=== PATIENT | female | born 2000 | race Caucasian/White ===

== ENCOUNTER 2022-05-10 09:49 | Emergency (ER) | payer OTHER ==
[~2022-05-10] VITALS: Ht 167.6 cm; Wt 56.7 kg
[2022-05-10] MEDS ORDERED: PRENA1 TRUE CO1 EACH PO (09:54)
[2022-05-10] MEDS ORDERED: PROAIR RESPICL90 MCG IH (13:14)
[2022-05-10] MEDS ORDERED: MUCINEX DM ER1 EAC1 PO (13:14)
[2022-05-10] MEDS ORDERED: CETIRIZINE HCL10 MG PO (13:14)
== END 2022-05-10 14:27 ==
LOC: ER 09:49 → EMR PED 09:49 → ER 10:17
DX: O98.512 Other viral diseases complicating pregnancy, second trimester (principal); O23.42 Unspecified infection of urinary tract in pregnancy, second trimester; U07.1 COVID-19; Z3A.18 18 weeks gestation of pregnancy; N39.0 Urinary tract infection, site not specified; J06.9 Acute upper respiratory infection, unspecified; O26.892 Other specified pregnancy related conditions, second trimester; R10.2 Pelvic and perineal pain; Z91.010 Allergy to peanuts

== ENCOUNTER 2022-05-10 14:00 | Outpatient (CLI) | payer OTHER ==
[~2022-05-10 14:00] MED LIST: CETIRIZINE HCL10 MG PO; MUCINEX DM ER1 EAC1 PO; PRENA1 TRUE CO1 EACH PO; PROAIR RESPICL90 MCG IH
== END 2022-05-10 15:13 | disposition home or self-care (01) ==
LOC: ASH CLINIC 14:00
PROVIDERS: ATTEND General Practice
DX: U07.1 COVID-19 (principal)

== ENCOUNTER 2022-05-18 12:25 | Outpatient (CLI) | payer OTHER ==
[2022-05-19] MEDS ORDERED: PEPCID20 MG PO (15:31)
== END 2022-05-19 15:28 | disposition home or self-care (01) ==
LOC: OBS/DEL 12:25
PROVIDERS: ATTEND Obstetrics & Gynecology
DX: O26.892 Other specified pregnancy related conditions, second trimester (principal); Z3A.20 20 weeks gestation of pregnancy; K29.70 Gastritis, unspecified, without bleeding; R10.2 Pelvic and perineal pain; R19.7 Diarrhea, unspecified; Z91.010 Allergy to peanuts

== ENCOUNTER 2022-08-03 01:43 | Inpatient (IN) | payer OTHER ==
[~2022-08-03] VITALS: Ht 152.4 cm; Wt 64.4 kg
[~2022-08-03 01:43] MED LIST changes: +PEPCID20 MG PO
== END 2022-08-23 15:15 | disposition home or self-care (01) | DRG 833 ==
LOC: LDR 01:43 → OB/GYN 08-04 12:47 → EDBD 08-23 15:15 → OB/GYN 08-23 15:15
PROVIDERS: ADMIT Obstetrics & Gynecology; ATTEND Obstetrics & Gynecology
PROC: 4A1HXCZ Monitoring of Products of Conception, Cardiac Rate, External Approach (ICD-10-PCS; principal; 2022-08-03)
PROC: BY4FZZZ Ultrasonography of Third Trimester, Single Fetus (ICD-10-PCS; 2022-08-16)
DX: O60.03 Preterm labor without delivery, third trimester (principal); O36.8130 Decreased fetal movements, third trimester, not applicable or unspecified; O26.843 Uterine size-date discrepancy, third trimester; Z3A.33 33 weeks gestation of pregnancy; Z20.822 Contact with and (suspected) exposure to COVID-19

== ENCOUNTER 2022-08-24 15:18 | Inpatient (IN) | payer OTHER ==
[~2022-08-24] VITALS: Ht 167.6 cm; Wt 2.7 kg
== END 2022-08-26 18:27 | disposition home or self-care (01) | DRG 807 ==
LOC: LDR 15:18 → EDBD 15:18 → OB/GYN 17:03
PROVIDERS: ADMIT Obstetrics & Gynecology; ATTEND Obstetrics & Gynecology
PROC: 10E0XZZ Delivery of Products of Conception, External Approach (ICD-10-PCS; principal; 2022-08-24)
PROC: 0W8NXZZ Division of Female Perineum, External Approach (ICD-10-PCS; 2022-08-24)
PROC: 4A1HXCZ Monitoring of Products of Conception, Cardiac Rate, External Approach (ICD-10-PCS; 2022-08-24)
DX: O60.14X0 Preterm labor third trimester with preterm delivery third trimester, not applicable or unspecified (principal); Z37.0 Single live birth; Z3A.34 34 weeks gestation of pregnancy; Z20.822 Contact with and (suspected) exposure to COVID-19